=== PATIENT | male | born 1955 | race Caucasian/White ===

== ENCOUNTER → 2020-07-12 | Day surgery (SDC) | payer MEDICARE, OTHER ==
[2020-07-07 15:06] LABS: BASOPHILS % 0.5 % (0.0-1.0); EOSINOPHILS # (AUTO) 0.1 (0.0-0.4); EOSINOPHILS % 1.4 % (0.0-6.0); HEMATOCRIT 39.8 % (38.2-49.6); HEMOGLOBIN 13.5 g/dL (14.0-18.0); LYMPHOCYTES # (AUTO) 3.2 (1.0-3.2); LYMPHOCYTES % 40.7 % (18.0-39.1); MEAN CORPUSCULAR HEMOGLOBIN 31.5 pg (28-32); MEAN CORPUSCULAR HGB CONC 33.9 g/dL (31-35); MONOCYTES # (AUTO) 0.5 (0.2-0.8); MONOCYTES % 6.8 % (4.4-11.3); NEUTROPHILS # (AUTO) 3.9 (2.1-6.9); NEUTROPHILS % 50.2 % (38.7-80.0); PLATELET COUNT 286 x10e3/uL (140-360); RED BLOOD COUNT 4.28 x10e6/uL (4.3-5.7); RED CELL DISTRIBUTION WIDTH 13.3 % (11.7-14.4)
--- NOTE | 2020-07-07 16:15 | Diagnostic Imaging Report ---
Exam: CHEST 2 VIEWS Date: 07/07/2020 4:12 PM INDICATION: ^[id number] ^1530 ^PRE OP Comparison: None FINDINGS: Lines/Tubes:None Lungs:The lungs are well inflated. No focal consolidation or pulmonary edema. Pleura:No pleural effusion. No pneumothorax. Heart/Mediastinum:The cardiomediastinal silhouette is normal in size and contour. Bones/Soft Tissues: No acute osseous abnormality. Mild to moderate multilevel degenerative changes of the spine are noted. Upper abdomen: Unremarkable. IMPRESSION: Negative for acute intrathoracic process. Signed by: Ziggy Aguilar MD on 07/07/2020 4:12 PM
[~2020-07-12] MED LIST: AMLODIPINE BESY10 MG PO; BENICAR20 MG PO; BUPIVACAINE HCL 0.5% INJ 30 ML VIAL INJ ONE; CARVEDILOL12.5 MG PO; CEFAZOLIN SOD 1 GM/NS 50ML 50 ML IV ONE; DEXAMETHASONE SOD PHOS INJ 4 MG/ML VIAL ONE; FENTANYL CITRATE/PF 100MCG/2 ML INJ ONE; KETOROLAC TROMETHAMINE 30 MG/ML VIAL ONE; LIDOCAINE HCL 2% LOCAL INJ 5 ML SDV VIAL INJ ONE; MIDAZOLAM HCL 2 MG/2 ML VIAL ONE; MUPIROCIN 2% OINT 22 GM TUBE ONE; ONDANSETRON HCL INJ 2MG/ML 2ML 2 MG/ML VIAL ONE; PRALUENT P75 MG/1 ML INJ; PROPOFOL IV EMULSION 10 MG/ML 20 ML VIAL ONE; SEVOFLURANE INHAL SOLN 250 ML PEN BTL ONE
[2020-07-12 09:05] VITALS: BP 139/82
--- NOTE | 2020-07-12 10:31 | Operative Report ---
DATE OF PROCEDURE: 07/12/2020 SURGEON: Kirill Servin MD PREOPERATIVE DIAGNOSES: 1. Dupuytren's contracture, right little finger. 2. Dupuytren's cord, first web space, right hand. POSTOPERATIVE DIAGNOSES: 1. Dupuytren's contracture, right little finger. 2. Dupuytren's cord, first web space, right hand. PROCEDURE: 1. Excision of Dupuytren's cord, right little finger and palm. 2. Excision of cord, first palmar web space. ANESTHESIA: General. HISTORY: The patient is a 65-year-old right-hand dominant male, who has significant extension deficits of the right little finger at both the MP and the PIP joint secondary to Dupuytren's contracture. The risks, benefits, and alternatives of treatment were discussed with the patient and he is prepared to undergo the procedure as outlined. PROCEDURE IN DETAIL: The patient was marked preoperatively in the holding area. He was brought to the operating theater and after the induction of adequate general anesthesia, he was prepped and draped in a supine position and a time-out was performed. The procedure was begun by marking out the cord from the palm all the way to the DIP flexion crease of the right little finger. The right upper extremity was then exsanguinated and the tourniquet was inflated to a pressure of 250 mmHg. Using a scalpel, the incision was made through the skin and the dermis directly onto the cord. Using sharp dissection, the skin and the dermis were elevated off the Dupuytren's cord from the palm all the way to the DIP flexion crease. With the cord completely visualized proximally in the palm, a hemostat was placed beneath the cord, elevating it out of the plane of the palm and it was then transected proximally. At this point, the neurovascular bundle to the radial and the ulnar side of the little finger are identified. Once these structures have been identified, the dissection continues from proximal to distal, keeping the neurovascular bundles inside at all times protected and preserved. All of the vertical extensions down to the interosseous muscles and the adherence to the flexor tendon sheath are released in sequence from proximal to distal. The cord was then dissected all the way to its termination at the level of the DIP flexion crease. It was then removed in its entirety and sent for permanent pathologic examination. At this point, the right little finger extends completely without difficulty. The wound in the 1st web space is marked out between the MP joint of the thumb and the MP joint of the index finger. The incision was made through the skin down through the dermis and then the cord was identified. The cord was dissected free from its dermal attachments and then its origination on both ends was identified, transected, and then removed sharply. It too was sent for permanent pathologic examination. Both wounds were irrigated with bacteriostatic saline. The tourniquet was deflated and all bleeding points were attended to with the bipolar cautery. Once the wound was hemostatic, the wounds were closed with 5-0 nylon in interrupted horizontal mattress fashion. A Z-plasty was performed at the MP flexion crease of the right little finger to prevent scar contracture. At this point, Marcaine field blocks were performed at both operative sites. A sterile bulking conforming bandages were applied and a fiberglass splint was added on the volar surface to maintain the wrist in a modest amount of extension, the MPs at approximately 50-60 degrees and the IPs neutral. This was held in place with a loosely wrapped Dipak wrap. The patient tolerated the procedure well and was brought to recovery room in satisfactory condition and discharged with a postoperative instruction sheet as well as a followup appointment. MD DAMIÁN Hernández/ALLI /[id number]
== END | disposition home or self-care (01) ==
LOC: OR 05:18
PROVIDERS: ATTEND Plastic Surgery
DX: M72.0 Palmar fascial fibromatosis [Dupuytren] (principal); I10 Essential (primary) hypertension; F41.9 Anxiety disorder, unspecified; Z01.810 Encounter for preprocedural cardiovascular examination; Z01.812 Encounter for preprocedural laboratory examination; Z01.818 Encounter for other preprocedural examination; Z11.59 Encounter for screening for other viral diseases
CPT/HCPCS: 26123; 36415; 71046; 85025; 88304; 93005; J0690; J1100; J1885; J2001; J2250; J2405; J2704; J3010; U0002

== ENCOUNTER → 2020-09-08 | Day surgery (SDC) | payer MEDICARE, OTHER ==
[2020-09-05 15:49] LABS: BASOPHILS # (AUTO) 0.1 (0.0-0.1); BASOPHILS % 0.7 % (0.0-1.0); EOSINOPHILS # (AUTO) 0.1 (0.0-0.4); EOSINOPHILS % 1.5 % (0.0-6.0); HEMATOCRIT 37.1 % (38.2-49.6); HEMOGLOBIN 12.7 g/dL (14.0-18.0); LYMPHOCYTES % 44.8 % (18.0-39.1); MEAN CORPUSCULAR HGB CONC 34.2 g/dL (31-35); MEAN CORPUSCULAR VOLUME 93.5 fL (81-99); MONOCYTES # (AUTO) 0.7 (0.2-0.8); MONOCYTES % 7.8 % (4.4-11.3); NEUTROPHILS % 44.8 % (38.7-80.0); PLATELET COUNT 308 x10e3/uL (140-360); RED BLOOD COUNT 3.97 x10e6/uL (4.3-5.7); RED CELL DISTRIBUTION WIDTH 13.4 % (11.7-14.4)
[~2020-09-08] MED LIST changes: +BUPIVACAINE HCL 0.5% 10ML MPF VIAL INJ ONE; -BUPIVACAINE HCL 0.5% INJ 30 ML VIAL INJ ONE; +CENTRUM COMPLE1 EACH PO; +FOLIC ACID0.4 MG PO; -KETOROLAC TROMETHAMINE 30 MG/ML VIAL ONE; +LISINOPRIL10 MG PO; +VITAMIN B COMP1 EACH PO; +VITAMIN C1000 M2 PO; +VITAMIN D3250 MC1 PO
--- NOTE | 2020-09-08 07:15 | NUR ---
SPIRITUAL CARE - Pre-Surgery Assessment: Pt in bed. Pt reported supportive attention from family and friends. Intervention: Provided pastoral presence, hospitality, and sympathetic listening. 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 Outcome: Pt expressed appreciation for visit. No need for follow up indicated at this time. JERSON Jerry Spiritual Care Department O: [phone]
[2020-09-08 10:40] VITALS: BP 162/81
--- NOTE | 2020-09-08 12:42 | Operative Report ---
DATE OF PROCEDURE: 09/08/2020 SURGEON: Kirill Servin MD PREOPERATIVE DIAGNOSES: 1. Dupuytren's contracture, left little finger. 2. Dupuytren's contracture, left thumb. PROCEDURES: 1. Excision of Dupuytren's cord, left little finger. 2. Excision of Dupuytren's cord, left thumb. ANESTHESIA: General. HISTORY: The patient is a 65-year-old right-hand dominant male, who several weeks ago underwent resection of Dupuytren's cords on the right hand. He now presents for resection of cords on the left hand. Risks, benefits, and alternatives of treatment were discussed with the patient and he is prepared to undergo the procedure as outlined. DESCRIPTION OF PROCEDURE: The patient was marked preoperatively in the holding area. He was brought to the operating theater and after the induction of adequate general anesthesia, he was prepped and draped in a supine position and a time-out was performed. A longitudinal incision was marked out from the palm all the way to the DIP flexion crease of the left little finger. The cord on the left thumb was marked out as well. The left upper extremity was exsanguinated and the tourniquet was inflated to a pressure of 250 mmHg. The incision in the palm for the cord to the left little finger was made through the skin into the dermis, where the cord was noted to be densely adherent to the underside of the dermis. The skin flaps were then elevated off the cord sharply using a 15 blade. Care was taken to ensure adequate thickness to the skin to prevent devascularization. Once the skin flaps on medial ulnar side of the cord were completely elevated, the extent of the cord was appreciated. Approximately in the palm, a blunt dissection with a hemostat was done alongside the cord and then the cord was elevated out of the plane of the palm. It was transected at this point proximally with a 15 blade. At this point, dissection on the radial side of the cord in the 4th web space was performed in order to identify the neurovascular bundle side of the cord. On the ulnar side of the cord, dissection through the hypothenar fat pad was done until the ulnar digital nerve of the little finger was identified. Once the neurovascular structures had been identified, they were traced from proximal to distal and all of the Dupuytren's elements including all the vertical septa went down on either side of the tendon sheath were excised from proximal to distal. Care was taken to ensure that the neurovascular bundles remained well visualized and protected and preserved. The dissection continues to the MP joint, where the ulnar digital nerve was noted to deviate quite radially, however, it was followed and traced and then returned to its [place] position at the level of the PIP joint. At this point, the cord element terminated at the distal aspect of the middle phalanx and was removed in its entirety. The incision for the left thumb was made through the skin and the dermis and skin flaps elevated sharply off the cord. The cord was noted to be comprised of the distal edge of the adductor muscle. The cord was completely exposed and then transected and dissected free from the adductor muscle. Both cords were sent for permanent pathologic examination. At this point, the tourniquet was deflated. All the fingers pinked up nicely and the wounds were made hemostatic using the bipolar cautery. The wounds were then copiously irrigated with bacteriostatic saline and closed with 5-0 nylon in an interrupted horizontal mattress fashion. At the level of the MP flexion crease of the left little finger, a Z-plasty had been incorporated into the closure. Marcaine field blocks were performed at both operative sites. Sterile bulking conforming bandage was applied. Fiberglass splint was fashioned to maintain the wrist in a modest amount of extension and the MPs at approximately 60 to 70 degrees of flexion and the IPs neutral, and this was held in place with a loosely wrapped Dipak wrap. The patient tolerated the procedure well and was brought to recovery room in satisfactory condition and discharged with a postoperative instruction sheet as well as a followup appointment. MD DAMIÁN Hernández/ALLI /[id number]
== END | disposition home or self-care (01) ==
LOC: OR 06:20
PROVIDERS: ATTEND Plastic Surgery
DX: M72.0 Palmar fascial fibromatosis [Dupuytren] (principal); I10 Essential (primary) hypertension; Z01.812 Encounter for preprocedural laboratory examination; Z20.828 Contact with and (suspected) exposure to other viral communicable diseases
CPT/HCPCS: 26123; 26125; 36415; 85025; 88304; J0690; J1100; J2001; J2250; J2405; J2704; J3010; U0002